=== PATIENT | male | born 1985 | race Caucasian/White ===

== ENCOUNTER → 2018-11-21 | Outpatient (CLI) | payer OTHER ==
[~2018-11-21] MED LIST: no meds per pt
== END | disposition home or self-care (01) ==
LOC: CFH 13:30
PROVIDERS: ATTEND Orthopaedic Surgery
DX: S96.812A Strain of other specified muscles and tendons at ankle and foot level, left foot, initial encounter (principal); M19.072 Primary osteoarthritis, left ankle and foot; X58.XXXA Exposure to other specified factors, initial encounter; Y93.89 Activity, other specified; Y92.89 Other specified places as the place of occurrence of the external cause; Y99.8 Other external cause status

== ENCOUNTER 2018-11-22 05:19 | Day surgery (SDC) | payer OTHER ==
[~2018-11-22] VITALS: Ht 177.8 cm; Wt 117.0 kg
[2018-11-22] MEDS ORDERED: LACTATED RINGERS 1,000 ML IV SCH (05:47)
[2018-11-22 05:48] VITALS: BP 132/89
[2018-11-22] MEDS ORDERED: BUPIVACAINE/PF 0.5% ONE ×2 (06:13→08:25)
[2018-11-22] MEDS ORDERED: LIDOCAINE 1%, 20ML ONE (06:13)
[2018-11-22] MEDS ORDERED: no meds per pt (06:15)
[2018-11-22] MEDS ORDERED: FENTANYL PF 100 MCG/2ML ONE (06:33)
[2018-11-22] MEDS ORDERED: MIDAZOLAM 1 MG/ML, 2ML ONE (06:33)
[2018-11-22] MEDS ORDERED: LIDOCAINE 2%, 6 ML JEL.PF.APP MM ONE (06:34)
[2018-11-22] MEDS ORDERED: SUCCINYLCHOLINE 20 MG/ML, 10ML ONE (07:11)
[2018-11-22] MEDS ORDERED: ROCURONIUM 10 MG/ML,10ML ONE (07:11)
[2018-11-22] MEDS ORDERED: KETOROLAC 30 MG/1 ML ONE (07:11)
[2018-11-22] MEDS ORDERED: DEXAMETHASONE 4 MG/ML, 1ML ONE (07:11)
[2018-11-22] MEDS ORDERED: PROMETHAZINE 25 MG/ML, 1ML IV PRN (08:00)
[2018-11-22] MEDS ORDERED: MIDAZOLAM 1 MG/ML, 2ML IV PRN (08:00)
[2018-11-22] MEDS ORDERED: MEPERIDINE/PF 25MG/0.5ML IVPush PRN (08:00)
[2018-11-22] MEDS ORDERED: ACETAMINOPHEN 325 MG TABLET PO PRN (08:00)
[2018-11-22] MEDS ORDERED: ONDANSETRON 2MG/ML, 2ML IV PRN (08:00)
[2018-11-22] MEDS ORDERED: FENTANYL PF 100 MCG/2ML IV PRN (08:00)
[2018-11-22] MEDS ORDERED: OXYcodone 5 MG/5 ML ORAL.SOL UDC PO PRN (08:00)
[2018-11-22] MEDS ORDERED: SCOPOLAMINE PATCH, 1.5MG PATCH.TD72 TD PRN (08:00)
[2018-11-22] MEDS ORDERED: LIDOCAINE-MPF 2% ,5ML ONE (08:25)
[2018-11-22] MEDS ORDERED: ONDANSETRON 2MG/ML, 2ML ONE (08:25)
[2018-11-22] MEDS ORDERED: PROPOFOL 10 MG/ML, 20ML ONE (08:25)
[2018-11-22] MEDS ORDERED: CEFAZOLIN 1,000 MG ONE (08:25)
[2018-11-22] MEDS ORDERED: PROMETHAZINE 25 MG/ML, 1ML ONE (08:46)
== END 2018-11-22 11:08 | disposition home or self-care (01) ==
LOC: OUT 05:19
PROVIDERS: ATTEND Orthopaedic Surgery
DX: S86.312A Strain of muscle(s) and tendon(s) of peroneal muscle group at lower leg level, left leg, initial encounter (principal); S93.492A Sprain of other ligament of left ankle, initial encounter; M21.6X2 Other acquired deformities of left foot; M65.872 Other synovitis and tenosynovitis, left ankle and foot; M25.372 Other instability, left ankle; K21.9 Gastro-esophageal reflux disease without esophagitis; X58.XXXA Exposure to other specified factors, initial encounter; Y93.89 Activity, other specified; Y92.89 Other specified places as the place of occurrence of the external cause; Y99.8 Other external cause status
CPT/HCPCS: 27676; 29891; 29898; 64445; 64447; C1713; J0330; J0690; J1100; J1885; J2250; J2405; J2550; J2704; J3010; J3490